=== PATIENT | female | born 1955 | race Caucasian/White ===

== ENCOUNTER 2017-05-22 10:56 | Day surgery (SDC) | payer OTHER ==
--- NOTE | 2017-05-19 17:27 | EKG REPORT ---
SEVERITY:- BORDERLINE ECG - SINUS RHYTHM NONSPECIFIC ST-T CHANGES- INFERIOR LEADS : Confirmed by: Irwin Arroyo MD 19-May-2017 17:25:50
[~2017-05-22 10:56] MED LIST: CEFAZOLIN 2 GM/D5W RTU 2 GM/50 ML RTUPB IV PRN
[2017-05-22] MEDS ORDERED: ALBUTEROL SULFATE 0.083% NEB 2.5 MG/3 ML AMPUL NEB ONE (11:44)
[2017-05-22] MEDS ORDERED: SCOPOLAMINE HYDROBROMIDE 1.5 MG PATCH.TD72 TD ONE (12:45)
[2017-05-22] MEDS ORDERED: BUPIVACAINE HCL 0.5%/EPI 1:200000 INJ 1.8 ML CARTRIDGE ONE (12:57)
[2017-05-22] MEDS ORDERED: MIDAZOLAM 2 MG/2 ML INJ ONE (12:59)
[2017-05-22] MEDS ORDERED: CARBOXYMETHYLCELLULOSE SOD 0.5% 0.4 ML DROPERETTE ONE (12:59)
[2017-05-22] MEDS ORDERED: ROCURONIUM BROMIDE INJ 50 MG/5 ML VIAL IV ONE (13:00)
[2017-05-22] MEDS ORDERED: FENTANYL CITRATE INJ/PF 100 MCG/2 ML AMPUL ONE (13:00)
[2017-05-22] MEDS ORDERED: SUCCINYLCHOLINE CHLORIDE INJ 200 MG/10 ML VIAL ONE (13:00)
[2017-05-22] MEDS ORDERED: ONDANSETRON HCL INJ/PF 4 MG/2 ML SDV ONE (13:00)
[2017-05-22] MEDS ORDERED: DEXAMETHASONE SOD PHOS INJ 10 MG/1 ML VIAL ONE ×2 (13:00)
[2017-05-22] MEDS ORDERED: PROPOFOL INJ 200 MG/20 ML VIAL IV ONE (13:00)
[2017-05-22] MEDS: BUPIVACAINE HCL 0.5%-EPI 1:200000 INJ/PF 30 ML VIAL ONE ×2 (13:55)
[2017-05-22] MEDS: OXYMETAZOLINE HCL 0.05% NASAL SPRAY 15 ML BOTTLE ONE ×2 (13:55→14:46)
[2017-05-22] MEDS ORDERED: WATER FOR INJECTION,STERILE 10 ML SDV ONE (14:58)
[2017-05-22] MEDS ORDERED: PHENYLEPHRINE HCL INJ/PF 10 MG/1 ML SDV ONE (16:25)
--- NOTE | 2017-05-24 20:44 | SURG[facility]ARE OPERATIVE REPORT E ---
[facility] Operative Report NAME: SANGEETHA BECKFORD AGE: 62Y DATE OF SURGERY: 05/22/2017 PREOPERATIVE DIAGNOSES: 1. CHRONIC RECURRENT SINUSITIS. 2. NASAL SEPTAL DEVIATION, ACQUIRED. 3. BILATERAL INFERIOR TURBINATE HYPERTROPHY. 4. BILATERAL MIDDLE TURBINATE HYPERTROPHY. 5. CHRONIC NASAL DYSPNEA. 6. CHRONIC RIGHT HEAD PAIN. POSTOPERATIVE DIAGNOSES: 1. CHRONIC RECURRENT SINUSITIS. 2. NASAL SEPTAL DEVIATION, ACQUIRED. 3. BILATERAL INFERIOR TURBINATE HYPERTROPHY. 4. BILATERAL MIDDLE TURBINATE HYPERTROPHY. 5. CHRONIC NASAL DYSPNEA. PROCEDURES PERFORMED: 1. IMAGE-GUIDE FUNCTIONAL ENDOSCOPIC SINUS SURGERY WITH RIGID SURGICAL ENDOSCOPY. 2. SEPTOPLASTY. 3. BILATERAL MAXILLARY ANTROSTOMY WITH RIGID SURGICAL ENDOSCOPY. 4. RIGHT FRONTAL INTRANASAL SINUSOTOMY WITH PROPEL STEROID-ELUTING STENT PLACEMENT. 5. LEFT IMAGE-GUIDED BALLOON FRONTAL SINUPLASTY. 6. BILATERAL INFERIOR TURBINATE REDUCTION USING A SUBMUCOUS RESECTION TECHNIQUE. 7. BILATERAL MIDDLE-TURBINATE REDUCTION WITH RIGID SURGICAL ENDOSCOPY. SURGEON: CONOR LORENZ D.O. ANESTHESIA: General endotracheal tube. ANESTHESIA STAFF: Judy Garcia CRNA ESTIMATED BLOOD LOSS: 100 mL FLUIDS: 1600 mL COMPLICATIONS: None. DRAINS: None. SPONGE COUNT: Verified. NEEDLE COUNT: Verified. MATERIALS FORWARDED SPECIMEN: None. FINDINGS: 1. Nasal septal deviation involving bone and cartilage. 2. Bilateral inferior-turbinate hypertrophy. 3. Bilateral middle-turbinate hypertrophy. 4. There were no sinonasal polyps or discharge noted. 5. On the right side, the patient was noted to have an accessory axillary sinus os. INDICATIONS: This is a 62-year-old white female who was seen and evaluated in the [facility]. The patient was referred for, and she has been complaining over the years, of chronic recurrent sinus disease requiring antibiotics. She also complains of chronic right head pain which is thought to be associated with the chronic recurrent sinus disease. The patient also complains of chronic nasal dyspnea. There was CT sinus imaging acquired which revealed sinus disease. The patient also underwent clinic flexible endoscopy. After extensive discussion with the patient, recommendation and plan was made to proceed with image-guided functional endoscopic sinus surgery with rigid surgical endoscopy, bilateral maxillary antrostomies, bilateral turbinate reductions, septoplasty, and frontal sinus surgery consisting of traditional and/or balloon sinuplasty. The procedures and all of their risks and complications were all discussed in detail with the patient. She voices an understanding of the described surgical plan, agreed to proceed, and consent was obtained. PROCEDURE: The patient was taken to the main operating room and placed on the operating room table in the supine position. Appropriate monitor placed. Using mask and IV access, general anesthesia was induced. The patient was next transorally intubated without difficulty. The patient was then positioned and prepped for nasal and sinus surgery. The patient underwent a nasal examination with injection of local anesthetic with epinephrine to establish a nasal block. The patient had 2 Afrin-soaked neuro patties placed per nasal passage. The image-guidance system was set up and tested appropriately before beginning the case. The patient was then prepped and draped in the usual fashion for nasal and sinus surgery. At this point, the Afrin-soaked neuro patties were removed. The patient underwent a hemitransfixion incision with elevation of the mucoperichondrial and periosteal flaps without difficulty. The bony cartilaginous junction was identified and divided. The most deviated portions of septal cartilage and bone were removed. There was a greater than 1.5 x 1.5 cm cartilaginous L strut that was preserved. At this point, the turbinates were addressed in the following manner. Each inferior turbinate underwent placement of the turbinate bipolar wand at 2 positions. Next, the anterior aspect was incised with Joaquín's scissors, and tissue was elevated with a Hugo elevator. Next, submucous resection was performed on each side with a turbinate microdebrider system at a setting of 1500 RPM. Each inferior turbinate was out-fractured with a [place] elevator. The functional endoscopic sinus surgery with image guidance was addressed in the following manner. Zero-degree rigid surgical endoscopy was utilized throughout the case. The middle turbinates were addressed with a straight Cinthya clamp to create controlled fractures. Next, with *------* instrument, the anterior portion of each middle turbinate was debulked. The right maxillary accessory sinus os was identified. With use of the microdebrider at a setting of 3000 RPM and sinus surgical instruments, the maxillary antrostomies were created without difficulty. Findings were as noted above. At this point, the right frontal sinus recess was addressed and opened with surgical instrumentation. Once complete, a Propel Contour steroid-eluting stent was placed into the area of the frontal recess without difficulty. Attention was turned to the left side with an image guidance frontal sinus balloon used which was passed through the frontal recess and inflated to 10 atmosphere. This was performed at 2 positions. Once complete, the frontal sinus balloon system was withdrawn. At this point, the nose was irrigated and thoroughly suctioned. The cartilage which had been removed was placed back between the mucosal *------*. The hemitransfixion incision was reapproximated with chromic suture. At this point, one silicone nasal splint with bacitracin ointment was placed per side. These were secured at the caudal aspect with 4-0 Prolene suture. At this point the patient's nose was cleaned and dried, and the patient was returned to the anesthesia staff. The patient was allowed to emerge from general anesthesia and was then extubated in the main operating room without difficulty. There were no complications. DICTATING PHYSICIAN: CONOR LORENZ D.O. [id number] PHY#: [id number] ID: [id number] JOB#: [id number] ACCT: [id number] cc:CONOR LORENZ D.O. >
== END 2017-05-22 17:55 | disposition home or self-care (01) ==
LOC: SC 10:56
PROVIDERS: ATTEND Otolaryngology
PROC: 09TL8ZZ Resection of Nasal Turbinate, Via Natural or Artificial Opening Endoscopic (ICD-10-PCS; 2017-05-22)
PROC: 09QT8ZZ Repair Left Frontal Sinus, Via Natural or Artificial Opening Endoscopic (ICD-10-PCS; principal; 2017-05-22 11:45)
DX: J34.2 Deviated nasal septum (principal); J34.3 Hypertrophy of nasal turbinates; J32.9 Chronic sinusitis, unspecified; D64.9 Anemia, unspecified; I10 Essential (primary) hypertension; J34.1 Cyst and mucocele of nose and nasal sinus; R06.09 Other forms of dyspnea; K21.9 Gastro-esophageal reflux disease without esophagitis; E66.9 Obesity, unspecified; Z79.899 Other long term (current) drug therapy; Z79.82 Long term (current) use of aspirin; Z88.2 Allergy status to sulfonamides; Z68.41 Body mass index [BMI] 40.0-44.9, adult
CPT/HCPCS: 0406T; 30140; 30520; 31256; 31276; 31296; 170; 93005; 93010; J0330; J0690; J1100; J2250; J2370; J2405; J2704; J3010; J3490